=== PATIENT | female | born 1985 | race Caucasian/White ===

== ENCOUNTER 2017-01-24 22:37 | Emergency (ER) | payer MEDICAID, OTHER ==
[~2017-01-24] VITALS: Ht 160 cm; Wt 55.0 kg
[2017-01-25] MEDS ORDERED: KETOROLAC 60MG/2ML VIAL IM ONE (01:30)
[2017-01-25 04:40] VITALS: BP 99/66
== END 2017-01-25 04:40 | disposition home or self-care (01) ==
LOC: ER 22:37
DX: M94.0 Chondrocostal junction syndrome [Tietze] (principal)
CPT/HCPCS: 96372; 99283; J1885